=== PATIENT | female | born 1990 | race American Indian/Alaskan Native ===

== ENCOUNTER 2016-05-19 20:20 | Emergency (ER) | payer MEDICAID ==
[2016-05-19 20:43] VITALS: BP 123/73
[2016-05-19] MEDS ORDERED: DELTASONE PO ONE (22:25)
[2016-05-19] MEDS ORDERED: DILAUDID IM ONE (22:25)
[2016-05-19] MEDS ORDERED: ZOFRAN ODT PO ONE (22:25)
--- NOTE | 2016-05-19 22:25 | Emergency Department Report ---
- General Chief complaint: Skin Rash Stated complaint: RASH Time Seen by Provider: 05/19/16 21:22 Source: family, EMS Mode of arrival: Ambulatory Limitations: No Limitations - History of Present Illness Initial comments: Patient here reports that she has painful rash on her upper back does radiate into the left upper back. She said it started a few days ago, and pain is 10 out of 10. Denies Chest pain. Denies wheezing, coughing, fever or chills. Denies drooling or painful swallowing. Reports pain before rash. Denies any coughing. MD complaint: rash Onset/Timin -: days(s) Tetanus Up to Date: yes Location: back Severity: severe Severity scale (0 -10): 10 Quality: burning Consistency: constant Improves with: none Worsens with: palpation, movement Context: none Associated symptoms: denies other symptoms Treatments Prior to Arrival: none - Related Data Previous Rx's Medication Instructions Recorded Last Taken Type Acetaminophen/Codeine [Tylenol #3] 1 tab PO Q6H PRN #20 tab 12/12/14 Unknown Rx Ibuprofen [Motrin 800 MG tab] 800 mg PO Q8HR PRN #30 tablet 12/12/14 Unknown Rx metroNIDAZOLE [Flagyl TAB] 500 mg PO Q12HR #14 tab 12/12/14 Unknown Rx HYDROcodone/APAP 5-325 [[place] 1 each PO Q6HR PRN #12 tablet 05/19/16 Unknown Rx 5/325] Valacyclovir HCl [Valtrex] 1,000 mg PO TID #21 tablet 05/19/16 Unknown Rx Allergies Allergy/AdvReac Type Severity Reaction Status Date / Time No Known Allergies Allergy Unverified 12/12/14 12:20 Abscess Boil HPI - HPI Chief Complaint: Skin Rash Stated Complaint: RASH Time Seen by Provider: 05/19/16 21:22 Home Medications: Previous Rx's Medication Instructions Recorded Last Taken Type Acetaminophen/Codeine [Tylenol #3] 1 tab PO Q6H PRN #20 tab 12/12/14 Unknown Rx Ibuprofen [Motrin 800 MG tab] 800 mg PO Q8HR PRN #30 tablet 12/12/14 Unknown Rx metroNIDAZOLE [Flagyl TAB] 500 mg PO Q12HR #14 tab 12/12/14 Unknown Rx HYDROcodone/APAP 5-325 [[place] 1 each PO Q6HR PRN #12 tablet 05/19/16 Unknown Rx 5/325] Valacyclovir HCl [Valtrex] 1,000 mg PO TID #21 tablet 05/19/16 Unknown Rx Allergies/Adverse Reactions: Allergies Allergy/AdvReac Type Severity Reaction Status Date / Time No Known Allergies Allergy Unverified 12/12/14 12:20 ED Review of Systems ROS: Stated complaint: RASH Other details as noted in HPI Comment: All other systems reviewed and negative Constitutional: denies: chills, fever ENT: denies: ear pain, throat pain, congestion Respiratory: no symptoms reported Cardiovascular: denies: chest pain, palpitations, edema, syncope Gastrointestinal: denies: abdominal pain, nausea, vomiting, diarrhea Genitourinary: denies: urgency, dysuria, frequency, hematuria, discharge Musculoskeletal: back pain. denies: arthralgia Skin: rash, lesions Neurological: denies: headache, weakness, numbness, paresthesias, confusion, abnormal gait, vertigo ED Past Medical Hx - Past Medical History Previous Medical History?: Yes Additional medical history: scoliosis - Surgical History Past Surgical History?: No - Family History Family history: no significant - Social History Smoking Status: Current Some Day Smoker Substance Use Type: None - Medications Home Medications: Home Medications Medication Instructions Recorded Confirmed Last Taken Type Acetaminophen/Codeine [Tylenol #3] 1 tab PO Q6H PRN #20 tab 12/12/14 Unknown Rx Ibuprofen [Motrin 800 MG tab] 800 mg PO Q8HR PRN #30 tablet 12/12/14 Unknown Rx metroNIDAZOLE [Flagyl TAB] 500 mg PO Q12HR #14 tab 12/12/14 Unknown Rx HYDROcodone/APAP 5-325 [[place] 1 each PO Q6HR PRN #12 tablet 05/19/16 Unknown Rx 5/325] Valacyclovir HCl [Valtrex] 1,000 mg PO TID #21 tablet 05/19/16 Unknown Rx ED Physical Exam - General Limitations: No Limitations General appearance: alert, in no apparent distress - Head Head exam: Present: atraumatic, normocephalic, normal inspection - Eye Eye exam: Present: normal appearance, PERRL, EOMI. Absent: periorbital swelling , periorbital tenderness Pupils: Present: normal accommodation - ENT ENT exam: Present: normal exam, normal orophraynx, mucous membranes moist, TM's normal bilaterally, normal external ear exam - Neck Neck exam: Present: normal inspection, full ROM. Absent: tenderness, meningismus, lymphadenopathy, thyromegaly - Respiratory Respiratory exam: Present: normal lung sounds bilaterally. Absent: respiratory distress, chest wall tenderness - Cardiovascular Cardiovascular Exam: Present: regular rate, normal rhythm, normal heart sounds - GI/Abdominal GI/Abdominal exam: Present: soft, normal bowel sounds. Absent: distended, tenderness, guarding, rebound, rigid - Extremities Exam Extremities exam: Present: normal inspection, full ROM, normal capillary refill. Absent: tenderness, pedal edema, joint swelling, calf tenderness - Back Exam Back exam: Present: normal inspection, full ROM, tenderness (tender to palpate at rash areas). Absent: CVA tenderness (R), CVA tenderness (L), muscle spasm, paraspinal tenderness, vertebral tenderness - Neurological Exam Neurological exam: Present: alert, oriented X3, normal gait, reflexes normal. Absent: motor sensory deficit - Psychiatric Psychiatric exam: Present: normal affect, normal mood - Skin Skin exam: Present: warm, dry, erythema, vesicles - Expanded Skin Exam Expanded Type of lesion: Present: rash Distribution of rash: back (right back) Description of rash: Present: tenderness, erythematous, vesicular, crusting. Absent: fluctuant, indurated ED Course Vital Signs 05/19/16 20:36 Temperature 98.6 F Pulse Rate 86 Respiratory 18 Rate Blood Pressure 123/73 O2 Sat by Pulse 100 Oximetry - Reevaluation(s) Reevaluation #1: 05/19/16 23:15 Patient receives Dilaudid 1 mg IM, Zofran 4 mg ODT and Deltasone 60 mg by mouth. Pain is now down to 2 out of 10. ED Medical Decision Making - Medical Decision Making ED course: I discussed with the patient that she has shingles and will need to take precautions to prevent spread and especially to persons. Discussed with her she needs to stay home from work for the next 72 hours. She was given Dilaudid 1 mg IM, Deltasone 60 mg by mouth and Zofran 4 mg ODT in emergency room. Patient stable and discharge home with family with prescription for [place], valacyclovir . I instructed her to follow up with her primary care physician and if she does not have a primary care physician and to follow-up with outside Medical Center and 2-3 days. Critical care attestation.: If time is entered above; I have spent that time in minutes in the direct care of this critically ill patient, excluding procedure time. ED Disposition Clinical Impression: Shingles rash Qualifiers: Herpes zoster complications: without complications Qualified Code(s): B02.9 - Zoster without complications Disposition: DISCHARGED TO HOME OR SELFCARE Is pt being admited?: No Does the pt Need Aspirin: No Condition: Stable Instructions: Herpes Zoster (ED) Additional Instructions: Keep affected area clean and dry. Please try to avoid contact with children and person Please do not drive or operate any heavy machinery while taking and pain medication as this will cause drowsiness Prescriptions: HYDROcodone/APAP 5-325 [[place] 5/325] 1 each PO Q6HR PRN #12 tablet PRN Reason: Pain Valacyclovir HCl [Valtrex] 1,000 mg PO TID #21 tablet Referrals: PRIMARY CARE, [Primary Care Provider] - 3-5 Days [facility] [Outside] - 3-5 Days Forms: Work/School Release Form(ED)
== END 2016-05-19 23:33 | disposition home or self-care (01) ==
LOC: ED 20:20
DX: B02.9 Zoster without complications (principal); F17.200 Nicotine dependence, unspecified, uncomplicated
CPT/HCPCS: 96372; 99283; J1170; J7512; Q0162